=== PATIENT | female | born 1955 | race African-American/Black ===

== ENCOUNTER 2016-11-17 06:26 | Inpatient (IN) | payer OTHER ==
[2016-11-17] VITALS (14 sets, daily range): BP systolic 117–136; BP diastolic 39–71
[~2016-11-17] VITALS: Ht 160 cm; Wt 94.8 kg
[~2016-11-17 06:26] MED LIST: CIPROFLOXACIN250 MG PO; HYDROCHLOROTH12.5 M2 ORAL; HYDROCHLOROTH12.5 MG ORAL; IBUPROFEN600 MG ORAL; LOVENOX10 M4 SUBQ; NORCO 5-325 TA1 EACH ORAL
[2016-11-17] MEDS ORDERED: MOBIC7.5 MG ORAL (06:48)
[2016-11-17] MEDS ORDERED: Bacitracin 50000 Units Vial ONE (06:59)
[2016-11-17] MEDS ORDERED: LR 1000ml ONE (07:00)
[2016-11-17] MEDS ORDERED: NS Irrig 1000ml ONE (07:00)
[2016-11-17] MEDS ORDERED: Propofol 10mg/ml 20ml IV ONE (07:00)
[2016-11-17] MEDS ORDERED: fentaNYL 100 mcg/2 mL IV ONE (07:00)
[2016-11-17] MEDS ORDERED: Metoprolol 5mg/5ml Inj ONE (07:00)
[2016-11-17] MEDS ORDERED: Sterile Water Irrig 1000ml IRRIG ONE (07:00)
[2016-11-17] MEDS ORDERED: Midazolam 2mg/2ml Inj ONE (07:00)
--- NOTE | 2016-11-17 07:13 | Pre-Procedure Note/Attestation ---
Pre-Procedure Note/Attestation Complete Prior to Procedure Planned Procedure: left Procedure Narrative: End Stage Degenerative Joint Disease, Laft knee. Fot Left TKR Indications for Procedure Pre-Operative Diagnosis: Same as above Attestation I attest that I discussed the nature of the procedure; its benefits; risks and complications; and alternatives (and the risks and benefits of such alternatives ), prior to the procedure, with the patient (or the patient's legal sales representative sales manager). I attest that, if there was a reasonable possibility of needing a blood transfusion, the patient (or the patient's legal sales representative sales manager) was given the [facility] standardized written summary, pursuant to the Pop Hermelindo Blood Safety Act ([place] Health and Safety Code # 1645, as amended). I attest that I re-evaluated the patient just prior to the surgery and that there has been no change in the patient's H&P, except as documented below: BREE AGUILLON Nov 17, 2016 07:13
[2016-11-17] MEDS ORDERED: LR 1000ml 1,000 ML IV SCH (07:15)
--- NOTE | 2016-11-17 08:07 | Anethesia Preoperative Eval ---
Anesthesia Pre-op PMH/ROS General Date of Evaluation: Nov 17, 2016 Time of Evaluation: 07:10 Anesthesiologist: Derek ASA Score: ASA 3 Mallampati Score Class I : Soft palate, uvula, fauces, pillars visible Class II: Soft palate, uvula, fauces visible Class III: Soft palate, base of uvula visible Class IV: Only hard plate visible Mallampati Classification: Class III Surgeon: Kamla Diagnosis: OA left knee Surgical Procedure: Left TKR Family History: no anesthesia problems Allergies: Uncoded Allergies: plastic tape (Allergy, Mild, skin irritation, 11/06/14) Medications: see eMAR Past Medical History Cardiovascular: Reports: HTN, Denies: CAD, MS, arrhythmia, other, valve dz Pulmonary: Denies: COPD, MARICEL, asthma, other Gastrointestinal/Genitourinary: Denies: CRI, ESRD, GERD, other Neurologic/Psychiatric: Denies: CVA, TIA, dementia, depression/anxiety, other Endocrine: Denies: DM, hypothyroidism, other, steroids HEENT: Denies: NIKOLAI (L), NIKOLAI (R), cataract (L), cataract (R), glaucoma, other Hematology/Immune: Reports: anemia, Denies: DVT, bleeding disorder, other Musculoskeletal/Integumentary: Reports: OA Other: obesity PMH Narrative: HTN, OA, obesity PSxH Narrative: B/l knee scope, lumbar laminectomy, right TKR Anesthesia Pre-op Phys. Exam Physician Exam Last Vital Signs Date Time Temp Pulse Resp B/P Pulse Ox O2 Delivery O2 Flow Rate FiO2 11/17/16 07:06 98.1 73 20 125/71 99 Room Air Constitutional: NAD Neurologic: CN 2-12 intact Cardiovascular: RRR, no M/R/G Respiratory: CTA Gastrointestinal: S/NT/ND Airway Exam Mallampati Score: Class III MO: full ROM: full Teeth: intact Anesthesia Pre-op A/P Labs H/H- 06/18 Risk Assessment & Plan Assessment: OA left knee Plan: GA, LMA Status Change Before Surgery: No Pre-Antibiotics Drug: Ancef 2GM Given Within 1 Hr of Incision: Yes Time Given: 07:30 ROBEL YOUNG M.D. Nov 17, 2016 08:07
--- NOTE | 2016-11-17 08:08 | Immediate Post-Op Evaluation ---
Immediate Post-Op Evalulation Immediate Post-Op Evalulation Procedure: Left TKR Date of Evaluation: Nov 17, 2016 Time of Evaluation: 10:10 IV Fluids: 1450 Estimated Blood Loss: 50 Urinary Output: 100 Blood Pressure Systolic: 123 Blood Pressure Diastolic: 66 Pulse Rate: 86 Respiratory Rate: 20 O2 Sat by Pulse Oximetry: 100 Temperature (Fahrenheit): 98.3 Pain Score (1-10): 0 Nausea: No Vomiting: No Complications No complication Patient Status: reacts, patent, none Hydration Status: adequate Drug: Ancef 2 GM Given Within 1 Hr of Incision: Yes Time Given: 07:30 ROBEL YOUNG M.D. Nov 17, 2016 08:08
[2016-11-17] MEDS ORDERED: LR 1000ml 1,000 ML IVLG SCH (08:53)
[2016-11-17] MEDS ORDERED: LORazepam Inj 2mg/ml 1ml IV PRN (09:00)
[2016-11-17] MEDS ORDERED: Hydromorphone 0.5mg/0.5ml inj IVP PRN (09:00)
[2016-11-17] MEDS ORDERED: Meperidine 25mg/ml Inj IV PRN (09:00)
[2016-11-17] MEDS ORDERED: Labetalol 5mg/ml 20ml vial IV PRN (09:45)
--- NOTE | 2016-11-17 10:04 | 48 Hour Post Anesthesia Eval ---
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 Nov 17, 2016 10:04
--- NOTE | 2016-11-17 10:12 | Operative Note - PDOC ---
Operative Note Operative Note Date of Operation/Procedure: Nov 17, 2016 Pre-op Diagnosis: End State Degenerative Joint Disease, Left Knee Procedure: Left Total Knee Replacement Post-op Diagnosis: same as pre-op Operative Findings: consistent w/pre-op dx studies Surgeon: Kamla Training Development Manager: Sandy Anesthesiologist: Derek Anesthesia: general Specimen: yes Complications: none Condition: stable Estimated Blood Loss: minimal Drains: hemovac Tourniquet time: 71 - min Implant(s) used?: Yes - Sudarshan Natural Knee BREE AGUILLON Nov 17, 2016 10:12
[2016-11-17] MEDS ORDERED: DiphenhydrAMINE 50mg/ml Inj IVP PRN (10:30)
[2016-11-17] MEDS ORDERED: LORazepam 1mg tab ORAL PRN (10:30)
[2016-11-17] MEDS ORDERED: Rate Change PCA 1 Each MISC PRN (10:30)
[2016-11-17] MEDS ORDERED: Naloxone 0.4mg/ml Inj IVP PRN (10:30)
[2016-11-17] MEDS: PCA HYDROmorphone 1mg/ml 30 ML IV PRN (10:56)
[2016-11-17 11:19] LABS: BASOPHILS % (AUTO) 0.9 % (0.0-2.0); EOSINOPHILS % (AUTO) 0.8 % (0.0-3.0); LYMPHOCYTES % (AUTO) 29.1 % (20.0-45.0); MEAN CORPUSCULAR HEMOGLOBIN 28.5 PG (27.0-31.0); MEAN CORPUSCULAR HGB CONC 30.8 G/DL (32.0-36.0); MEAN CORPUSCULAR VOLUME 93 FL (80-99); MEAN PLATELET VOLUME 5.2 FL (6.5-10.1); MONOCYTES % (AUTO) 10.9 % (1.0-10.0); NEUTROPHILS % (AUTO) 58.3 % (45.0-75.0); PLATELET COUNT 225 K/UL (150-450); RED BLOOD COUNT 4.08 M/UL (4.20-5.40); RED CELL DISTRIBUTION WIDTH 12.7 % (11.6-14.8); WHITE BLOOD COUNT 10.7 K/UL (4.8-10.8)
--- NOTE | 2016-11-17 11:32 | Diagnostic Imaging Report ---
Indication: Pain 2 views of the right knee were obtained. Findings: Postoperative film showing cemented total knee arthroplasty with a drain in place. Hardware alignment and position appear satisfactory. There are no fractures identified. Impression: Status post left total knee arthroplasty
[2016-11-17] MEDS: Docusate 100mg cap ORAL SCH ×2 (13:00→19:01)
[2016-11-17] MEDS: Acetaminophen 500mg (ES) tab ORAL SCH ×2 (13:00→19:02)
[2016-11-17] MEDS: D5 1/2NS w/KCl 20mEq 1,000 ML IV SCH ×2 (13:03→23:58)
[2016-11-17] MEDS: PCA shift volume MISC SCH ×2 (15:28→23:21)
[2016-11-17] MEDS: ceFAZolin sod 1 GM in D5W 55 ML IV SCH ×2 (16:16→23:57)
[2016-11-17] MEDS: Pericolace tab ORAL SCH (19:01)
--- NOTE | 2016-11-17 21:28 | Operative Note - Dictated ---
DATE OF OPERATION: 11/17/2016 FACILITY: [facility] SURGEON: Jordan Cason M.D. STOCK BROKER: RACHEL Kenney. ANESTHESIA: Dr. Britton, general. PREOPERATIVE DIAGNOSIS: Tricompartmental posttraumatic arthritis, varus weightbearing deformity, left knee. POSTOPERATIVE DIAGNOSIS: Tricompartmental posttraumatic arthritis, varus weightbearing, deformity left knee. OPERATIVE PROCEDURE: Total knee resurfacing arthroplasty using a Sudarshan, natural knee with a size 3 ingrowth femoral component and a size 2 ingrowth tibial component with 2 APR screws, 3 centimeters in length and with a 9 millimeter congruent tibial polyethylene insert with a size 1 all-poly 7 millimeter patella cemented. There was a lateral retinacular release for patellar realignment as well. The patient was prepped and draped supine on the operating table. The leg was placed on a Bolsters at 90 degrees of flexion, it could be facilitated throughout the procedure and to neutralize rotation of the pelvis. The leg was prepped and draped freely, was elevated, proximal tourniquet was elevated at 300 millimeters of mercury. A curved medial parapatellar incision was made from the quads expanse along the medial border of the patella to the tibial tuberosity. The incision was carried down through the capsule. Capsular incision was made in line with the skin incision. The lateral retinaculum was released, so that the patella could be isolated on the infrapatellar ligament and rotated 180 degrees, so that its articular surface faced upward. The synovium was removed from the edges of the patella and a patellar cutting guide was used to remove a minimal amount of the articular surface of the patella to obtain a flat surface for implant. The tibial cut was made and then the tibial cut was sized and drill holes were made for a size 1 all-polyethylene patella. There was a good flat surface with good contact at the margins. The femoral medullary canal was then cannulated with a drill and a guide was placed to align the femur for rotation and also to check for weightbearing alignment. An outrigger was positioned to find the femoral head center for rotation and the anterior-posterior chamfer and notch cuts were then made. A trial femoral component was then positioned and found to have good contact at all surfaces. The tibia was then subluxed forward and the remnant of the anterior, posterior medial and lateral meniscus was removed. The ACL was completely removed and the PCL was recessed over the tibial edge. The tibial alignment jig was then placed and aligned for weightbearing axis, slope and varus and valgus. A cutting plate was then positioned and the proximal tibial cut was made. The posterior medial capsular ligaments were completely released and the capsular attachments to the posterior femoral condyles medial and laterally were also released. A trial number 2 tibial base plate was positioned with a 9 millimeter poly. Range of motion was good with good stability from 0 to 110 degrees. There was good patellar tracking. The tibia was then tapped into place. Two 3-centimeter APR screws were used for fixation and a 9 millimeter congruent polyethylene was then inserted. The femoral component was then likewise tapped into place with good contact at all surfaces. Range of motion and stability were checked and found to be good. The patella was then cemented into place with a half pack of cement. All excess cement was removed. Patellar tracking was checked. Tourniquet was then released and bleeders were coagulated. The wound was copiously irrigated. The wound was closed with [id number] sutures of number 1 Vicryl. Hemovac was placed in the lateral release site. The skin and superficial tissue were closed. The patient was placed in a compression bandage and then returned to recovery room in good condition. Estimated blood loss was less than 50 mL. Jordan Cason M.D. DR: JUVENCIO JOB#: [id number] CC:
[2016-11-18] VITALS: BP 126/71
[2016-11-18 04:00] VITALS: BP 140/73
[2016-11-18] MEDS: PCA shift volume MISC SCH ×3 (07:25→23:25)
[2016-11-18] MEDS: ceFAZolin sod 1 GM in D5W 55 ML IV SCH ×2 (07:55→16:09)
[2016-11-18 08:00] VITALS: BP 145/79
[2016-11-18] MEDS: Pericolace tab ORAL SCH ×2 (08:45→18:15)
[2016-11-18] MEDS: Acetaminophen 500mg (ES) tab ORAL SCH ×3 (08:45→18:00)
[2016-11-18] MEDS: Docusate 100mg cap ORAL SCH ×3 (08:46→18:16)
[2016-11-18 12:00] VITALS: BP 138/84
[2016-11-18] MEDS: PCA HYDROmorphone 1mg/ml 30 ML IV PRN (12:42)
[2016-11-18] MEDS: D5 1/2NS w/KCl 20mEq 1,000 ML IV SCH (16:09)
[2016-11-18 16:30] VITALS: BP 140/100
[2016-11-18 20:00] VITALS: BP 138/51
[2016-11-19] MEDS: ceFAZolin sod 1 GM in D5W 55 ML IV SCH ×3 (00:20→16:55)
[2016-11-19 00:47] VITALS: BP 122/61
[2016-11-19 04:00] VITALS: BP 135/65
[2016-11-19] MEDS: D5 1/2NS w/KCl 20mEq 1,000 ML IV SCH ×2 (04:36→18:39)
[2016-11-19] MEDS: PCA shift volume MISC SCH ×3 (07:16→23:00)
[2016-11-19 08:00] VITALS: BP 132/79
[2016-11-19] MEDS: Docusate 100mg cap ORAL SCH ×3 (08:34→16:56)
[2016-11-19] MEDS: Pericolace tab ORAL SCH ×2 (08:35→16:56)
[2016-11-19] MEDS: Acetaminophen 500mg (ES) tab ORAL SCH ×3 (09:43→18:00)
[2016-11-19] MEDS ORDERED: Norco 5mg/325mg tab ORAL PRN (10:30)
[2016-11-19] MEDS ORDERED: Norco 7.5mg/325mg tab ORAL PRN (10:30)
[2016-11-19] MEDS ORDERED: HYDROmorphone 1mg/ml Carpuject SUBQ PRN (10:30)
[2016-11-19 12:00] VITALS: BP 128/70
--- NOTE | 2016-11-19 12:01 | General Surgery Progress Note ---
General Surgery-Progress Note Subjective Procedure Performed Left Total Knee Replacement Symptoms: improved Objective Last 24 Hour Vital Signs Date Time Temp Pulse Resp B/P Pulse Ox O2 Delivery O2 Flow Rate FiO2 11/19/16 10:45 99.1 11/19/16 10:42 99.1 11/19/16 08:00 100.9 97 20 132/79 98 Room Air 11/19/16 08:00 20 11/19/16 06:41 99.6 11/19/16 04:00 100.2 101 19 135/65 98 Nasal Cannula 11/19/16 04:00 18 11/19/16 00:47 100.9 97 19 122/61 100 Room Air 11/19/16 00:00 18 11/18/16 21:22 99.3 11/18/16 20:00 100.8 97 19 138/51 99 Room Air 11/18/16 20:00 18 11/18/16 16:30 98.2 97 19 140/100 94 Room Air 11/18/16 16:00 18 11/18/16 13:12 98.4 11/18/16 12:44 18 11/18/16 12:44 18 11/18/16 12:00 98.4 85 20 138/84 99 Nasal Cannula 2.0 11/18/16 12:00 18 I&O Intake and Output 11/18/16 11/19/16 19:00 07:00 Intake Total 902.5 ml 670 ml Output Total 810 ml 1485 ml Balance 92.5 ml -815 ml Intake Oral 360 ml 240 ml IV Total 542.5 ml 430 ml Output Urine Total 550 ml 1300 ml Drainage Total 260 ml 185 ml Dressing: dry Wound: clean Drains: hemovac - Drainage 200cc / [address] Plan Additional [address] Abdi following. Beginning PT / OT Tash to come out now. Will leave hemovac until << 50cc / 24 her BREE AGUILLON Nov 19, 2016 12:01
[2016-11-19] MEDS ORDERED: NORCO 10-325 T1 EACH ORAL ×3 (13:57→14:01)
[2016-11-19] MEDS ORDERED: Rate Change PCA 1 Each MISC PRN (15:00)
[2016-11-19] MEDS: PCA HYDROmorphone 1mg/ml 30 ML IV PRN (15:08)
[2016-11-19 15:58] VITALS: BP 133/76
[2016-11-19 20:00] VITALS: BP 132/46
[2016-11-20] VITALS: BP 132/77
[2016-11-20] MEDS: ceFAZolin sod 1 GM in D5W 55 ML IV SCH ×3 (00:16→16:00)
[2016-11-20 04:00] VITALS: BP 132/67
[2016-11-20] MEDS: PCA shift volume MISC SCH ×3 (07:10→23:26)
[2016-11-20 08:00] VITALS: BP 127/71
[2016-11-20] MEDS: D5 1/2NS w/KCl 20mEq 1,000 ML IV SCH ×2 (08:48→22:03)
[2016-11-20] MEDS: Pericolace tab ORAL SCH ×2 (08:59→17:16)
[2016-11-20] MEDS: Docusate 100mg cap ORAL SCH ×3 (09:00→17:15)
[2016-11-20] MEDS: Acetaminophen 500mg (ES) tab ORAL SCH ×3 (09:44→17:17)
[2016-11-20 12:00] VITALS: BP 120/68
[2016-11-20] MEDS: PCA HYDROmorphone 1mg/ml 30 ML IV PRN (14:24)
[2016-11-20 16:00] VITALS: BP 116/65
[2016-11-20 20:16] VITALS: BP 131/76
[2016-11-21] VITALS (7 sets, daily range): BP systolic 114–131; BP diastolic 65–77
[2016-11-21] MEDS: ceFAZolin sod 1 GM in D5W 55 ML IV SCH ×3 (00:12→18:14)
[2016-11-21] MEDS: PCA shift volume MISC SCH ×3 (07:03→23:20)
[2016-11-21] MEDS: Docusate 100mg cap ORAL SCH ×3 (08:48→18:46)
[2016-11-21] MEDS: Pericolace tab ORAL SCH ×2 (08:48→18:46)
[2016-11-21] MEDS: Acetaminophen 500mg (ES) tab ORAL SCH ×3 (08:49→18:52)
--- NOTE | 2016-11-21 09:09 | General Surgery Progress Note ---
General Surgery-Progress Note Subjective Procedure Performed Left Total Knee Replacement Symptoms: improved, tolerating diet, voiding well Objective Last 24 Hour Vital Signs Date Time Temp Pulse Resp B/P Pulse Ox O2 Delivery O2 Flow Rate FiO2 11/21/16 07:08 99.9 11/21/16 04:00 100.6 93 19 131/71 94 Room Air 11/21/16 04:00 18 11/21/16 00:29 97.9 99 20 116/70 93 Room Air 11/21/16 00:00 18 11/20/16 20:16 98.2 87 18 131/76 99 Room Air 11/20/16 20:00 18 11/20/16 16:00 97.9 81 19 116/65 99 Room Air 11/20/16 16:00 18 11/20/16 14:54 98.6 11/20/16 14:24 18 11/20/16 14:24 18 11/20/16 14:24 98.6 11/20/16 12:00 98.6 86 20 120/68 100 Room Air 11/20/16 12:00 18 I&O Intake and Output 11/20/16 11/21/16 19:00 07:00 Intake Total 1180 ml 240 ml Output Total 55 ml 70 ml Balance 1125 ml 170 ml Intake Oral 600 ml 240 ml IV Total 580 ml Drainage Total 55 ml 70 ml # Voids 2 8 Dressing: dry Wound: clean Drains: none Assessment Additional Comments Drain removed this AM. Wound Clean & Dry Patient ready for discharge from orthopedic standdpoint. BREE Kelly Nov 21, 2016 09:09
[2016-11-21] MEDS: D5 1/2NS w/KCl 20mEq 1,000 ML IV SCH (12:44)
[2016-11-21] MEDS ORDERED: Rate Change PCA 1 Each MISC PRN (14:45)
[2016-11-21] MEDS ORDERED: PCA HYDROmorphone 1mg/ml 30 ML IV PRN (15:00)
[2016-11-22] MEDS: ceFAZolin sod 1 GM in D5W 55 ML IV SCH ×2 (00:20→09:51)
[2016-11-22] MEDS: D5 1/2NS w/KCl 20mEq 1,000 ML IV SCH (00:20)
[2016-11-22 04:00] VITALS: BP 131/70
[2016-11-22] MEDS: PCA shift volume MISC SCH (07:16)
[2016-11-22 08:00] VITALS: BP 134/73
[2016-11-22] MEDS: Pericolace tab ORAL SCH (09:52)
[2016-11-22] MEDS: Docusate 100mg cap ORAL SCH ×2 (09:52→14:09)
[2016-11-22] MEDS: Acetaminophen 500mg (ES) tab ORAL SCH ×2 (09:53→13:00)
[2016-11-22 12:00] VITALS: BP 126/68
--- NOTE | 2016-11-22 13:37 | General Progress Note ---
Assessment/Plan Assessment/Plan DJD knee s/o TKR PLAN 1. incentive spirometry 2. Xarelto on dc 3. PT evaluation and therapy 4. Hydration encourage 5. Pain management 6. discharge home 7. laxative prior to dc Subjective Allergies: Uncoded Allergies: plastic tape (Allergy, Mild, skin irritation, 11/06/14) Subjective able to ambulate Objective Last 24 Hour Vital Signs Date Time Temp Pulse Resp B/P Pulse Ox O2 Delivery O2 Flow Rate FiO2 11/22/16 12:00 18 11/22/16 12:00 98.1 94 20 126/68 95 Room Air 11/22/16 08:00 100.6 88 19 134/73 95 Room Air 11/22/16 08:00 18 11/22/16 04:00 19 11/22/16 04:00 98.8 93 18 131/70 99 Room Air 11/22/16 00:00 19 11/21/16 23:46 98.1 80 18 115/65 94 Room Air 11/21/16 20:00 98.1 82 18 124/77 97 Room Air 11/21/16 19:51 98.2 11/21/16 19:20 20 11/21/16 16:00 20 11/21/16 16:00 98.2 87 20 118/70 97 Room Air Intake and Output 11/21/16 11/22/16 19:00 07:00 Intake Total 1640 ml 1590 ml Output Total 35 ml Balance 1605 ml 1590 ml Intake Oral 760 ml 860 ml IV Total 880 ml 730 ml Drainage Total 35 ml # Voids 4 4 Height (Feet): 5 Height (Inches): 3.00 Weight (Pounds): 209 Objective WDWN NAD clear breath sounds bilaterally without rhonchi or wheeze [id number] without MRG NABS nontender no HSM no CCE nonfocal ambulates with walker CAMI BAILEY Nov 22, 2016 13:37
--- NOTE | 2016-11-22 13:42 | General Progress Note ---
Assessment/Plan Assessment/Plan DJD knee s/o TKR PLAN 1. 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 PT evaluation and therapy 4. Hydration encourage 5. Pain management 6. discharge home when stable 7. Ancef Subjective Date patient seen: Nov 18, 2016 Allergies: Uncoded Allergies: plastic tape (Allergy, Mild, skin irritation, 11/06/14) Subjective seen post op Objective Last 24 Hour Vital Signs Intake and Output Height (Feet): 5 Height (Inches): 3.00 Weight (Pounds): 209 Objective WDWN NAD clear breath sounds bilaterally without rhonchi or wheeze [id number] without MRG NABS nontender no HSM no CCE nonfocal CAMI BAILEY Nov 22, 2016 13:42
--- NOTE | 2016-11-22 13:43 | General Progress Note ---
Assessment/Plan Assessment/Plan DJD knee s/o TKR PLAN 1. incentive spirometry 2. CONSULTING IT ARCHITECT 3. PT evaluation and therapy 4. Hydration encourage 5. Pain management 6. discharge home when stable 7. surgical follow up Subjective Date patient seen: Nov 19, 2016 Allergies: Uncoded Allergies: plastic tape (Allergy, Mild, skin irritation, 11/06/14) Subjective stable Objective Height (Feet): 5 Height (Inches): 3.00 Weight (Pounds): 209 Objective WDWN NAD clear breath sounds bilaterally without rhonchi or wheeze [id number] without MRG NABS nontender no HSM no CCE nonfocal CAMI BAILEY Nov 22, 2016 13:43
--- NOTE | 2016-11-22 13:45 | General Progress Note ---
Assessment/Plan Assessment/Plan DJD knee s/o TKR PLAN 1. 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 PT evaluation and therapy 4. Hydration encourage 5. Pain management 6. discharge home when stable 7. surgical follow up Subjective Date patient seen: Nov 20, 2016 Allergies: Uncoded Allergies: plastic tape (Allergy, Mild, skin irritation, 11/06/14) Subjective stable Objective Height (Feet): 5 Height (Inches): 3.00 Weight (Pounds): 209 Objective WDWN NAD clear breath sounds bilaterally without rhonchi or wheeze [id number] without MRG NABS nontender no HSM no CCE nonfocal CAMI BAILEY Nov 22, 2016 13:44
--- NOTE | 2016-11-22 13:46 | General Progress Note ---
Assessment/Plan Assessment/Plan DJD knee s/o TKR PLAN 1. 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 PT evaluation and therapy 4. Hydration encourage 5. Pain management 6. discharge home in am 7. surgical follow up Subjective Date patient seen: Nov 21, 2016 Allergies: Uncoded Allergies: plastic tape (Allergy, Mild, skin irritation, 11/06/14) Subjective stable Objective Height (Feet): 5 Height (Inches): 3.00 Weight (Pounds): 209 Objective WDWN NAD clear breath sounds bilaterally without rhonchi or wheeze [id number] without MRG NABS nontender no HSM no CCE nonfocal CAMI BAILEY Nov 22, 2016 13:46
[2016-11-22] MEDS ORDERED: Norco 7.5mg/325mg tab ORAL PRN (15:00)
[2016-11-22] MEDS ORDERED: XARELTO1 EACH PO (15:52)
[2016-11-22 16:00] VITALS: BP 139/76
[2016-11-23] MEDS ORDERED: HYDROmorphone 1mg/ml Carpuject SUBQ PRN (15:00)
[2016-11-23] MEDS ORDERED: Norco 5mg/325mg tab ORAL PRN (15:00)
--- NOTE | 2016-11-24 08:17 | Discharge Summary ---
Discharge Summary Hospital Course Date of Admission Nov 17, 2016 at 06:26 Date of Discharge Nov 22, 2016 at 18:00 Admitting Diagnosis DJD L knee Reason for Hospitalization: DJD L knee, admitted for elective surgery HPI Miesha Fall , 61 year old female, was admitted on Nov 17, 2016 at 06:26 for DJD L knee, end stage and elective surgery Left total knee replacement Consultations dr celeste internal medicine Procedures s/p Left total knee replacement 11/17/16 dr Cason [place] Hospital Course s/p 11/17 left total knee replacement course of recovery uneventful initially with drain, subsequently removed by surgery wound clean and dry wound care pain management, controlled PT/OT ambulates IS DVT prophylaxis tolerated diet voided freely dc home fup with PMD and surgeon Discharge Medications Continued Medications: Rivaroxaban (Xarelto) 1 Each Tab.ds.pk 1 EACH PO DAILY for 14 Days, PACK Discontinued Medications: Hydrocodone Bit/Acetaminophen 10-325* (Marshall 10-325*) 1 Each Tablet 1 TAB ORAL Q4H PRN for For Pain, #60 TAB 0 Refills PRN PAIN Hydrocodone Bit/Acetaminophen 10-325* (Marshall 10-325*) 1 Each Tablet 0-5 TAB ORAL Q4H PRN for For Pain, #60 TAB 0 Refills PRN PAIN Hydrocodone Bit/Acetaminophen 10-325* (Marshall 10-325*) 1 Each Tablet 0.5 TAB ORAL Q4H PRN for For Pain, #60 TAB 0 Refills PRN PAIN Discharge Discharge Disposition Patient was discharged to Home (01) Discharge Diagnoses: (1) S/P total knee arthroplasty (2) Deformity of left knee joint (3) Tricompartment osteoarthritis of left knee (4) DJD (degenerative joint disease) of knee Julio (Vasuizaiah)Lisy NP Nov 24, 2016 08:17
--- NOTE | 2016-11-25 14:20 | Diagnostic Imaging Report ---
APPROVED REPORT CPT Code: 98838 Present Symptoms Lower Extremity Pain: Bilateral BILATERAL: Imaging reveals a patent deep venous system bilaterally. There is no evidence of thrombus within the femoral, popliteal or tibial segments. The greater saphenous veins are also within normal limits. Doppler indicates normal spontaneous flow within these segments.
--- NOTE | 2017-01-01 16:37 | General Progress Note ---
Assessment/Plan Assessment/Plan DJD knee s/P TKR PLAN 1. 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 PT evaluation and therapy 4. Hydration encourage 5. Pain management and post operative care 6. discharge when cleared by surgery 7. surgical follow up Subjective Date patient seen: Nov 17, 2016 Allergies: Uncoded Allergies: plastic tape (Allergy, Mild, skin irritation, 11/06/14) Subjective POST OP Objective Height (Feet): 5 Height (Inches): 3.00 Weight (Pounds): 209 Objective WDWN NAD clear breath sounds bilaterally without rhonchi or wheeze [id number] without MRG NABS nontender no HSM no CCE nonfocal CAMI BAILEY Jan 01, 2017 16:37
== END 2016-11-22 18:00 | disposition home health service (06) | DRG 470 ==
LOC: SDSOVERFLO 06:26 → 3E 12:36
PROC: 0SRD0J9 Replacement of Left Knee Joint with Synthetic Substitute, Cemented, Open Approach (ICD-10-PCS; principal; 2016-11-17 07:00)
DX: M17.32 Unilateral post-traumatic osteoarthritis, left knee (principal); I10 Essential (primary) hypertension; Z96.651 Presence of right artificial knee joint; M51.16 Intervertebral disc disorders with radiculopathy, lumbar region; E66.9 Obesity, unspecified
CPT/HCPCS: 36415; 85025; 86850; 86900; 86901; 87081; 93970; 94003; 94150; C9399; J2250; J2405